=== PATIENT | female | born 1980 | race Two or more races ===

== ENCOUNTER 2019-04-07 10:17 | Emergency (ER) | payer OTHER ==
[2019-04-07 10:33] VITALS: BP 117/79; PULSE 106; TEMP 98.1; BMI 29.5
[2019-04-07] MEDS ORDERED: KETOROLAC TROMETHAMINE 60 MG/2 ML VIAL IM ONE (11:35)
--- NOTE | 2019-04-07 11:41 | PDOC ---
History of Present Illness - General Chief Complaint: Pain, Acute Stated Complaint: RT FOOT PAIN Time Seen by Provider: 04/07/19 10:53 History Source: Patient - History of Present Illness Occurred: reports: other Severity: Yes: severe Lower Extremity Pain Location: right: foot Past History - Past Medical History Allergies/Adverse Reactions: Allergies Allergy/AdvReac Type Severity Reaction Status Date / Time No Known Allergies Allergy Verified 04/07/19 10:28 Home Medications: Ambulatory Orders Ibuprofen [Motrin] 800 mg PO TID #30 tablet 01/22/12 No Home Medications 01/22/12 levoFLOXacin [Levaquin] 750 mg PO DAILY #5 tablet 01/22/12 Ibuprofen [Motrin -] 800 mg PO Q6H #30 tablet 04/07/19 - Reproductive History Ectopic : Yes - Suicide/Smoking/Psychosocial Hx Smoking Status: Yes Smoking History: Current some day smoker Number of Cigarettes Smoked Daily: 5 Information on smoking cessation initiated: No Hx Alcohol Use: No Drug/Substance Use Hx: No Review of Systems - Review of Systems Constitutional: No: Chills, Fever Musculoskeletal: Yes: Joint Pain. No: Joint Swelling Integumentary: No: Rash *Physical Exam - Vital Signs Last Vital Signs Temp Pulse Resp BP Pulse Ox 98.1 F 106 H 18 117/79 99 04/07/19 10:23 04/07/19 10:23 04/07/19 10:23 04/07/19 10:23 04/07/19 10:23 - Physical Exam General Appearance: Yes: Appropriately Dressed, Moderate Distress HEENT: positive: Normal Voice Neck: positive: Supple Respiratory/Chest: negative: Respiratory Distress Extremity: positive: Other (ttp to medial R foot, no swelling or erythema, no ttp to plantar aspect or heel) Integumentary: positive: Dry, Warm Neurologic: positive: Fully Oriented, Alert, Normal Mood/Affect Medical Decision Making - Medical Decision Making 04/07/19 11:36 38 yo F, here w/ atraumatic R foot pain. Pt states for several months, she has had on and off pain mostly to medial R foot, radiating into ankle, hurts to bear weight, improves w/ motrin. Seen by her PMD and told possible MSK. Here today because pain worsen 2 days ago, limping in ED. pt works for [employer] and mostly sits at work per pt See exam Acute on chronic R foot pin Etiology unclear No plantar/heel ttp to suspect faciitis or spur No trauma Pain meds in ED Crutches given -dc w/ pain control and ortho f/u *DC/Admit/Observation/Transfer Diagnosis at time of Disposition: Foot pain, right - Discharge Dispostion Disposition: HOME Condition at time of disposition: Good - Prescriptions Prescriptions: Ibuprofen [Motrin -] 800 mg PO Q6H #30 tablet - Referrals Referrals: Quang Pham MD [Primary Care Provider] - Markie Olvera MD [Staff Physician] - - Patient Instructions Printed Discharge Instructions: DI for Foot Pain Additional Instructions: The cause of your foot pain is unclear and you will need further evaluation by an orthopedist Take motrin for pain as prescribed - Post Discharge Activity Forms/Work/School Notes: Back to Work
[2019-04-07] MEDS ORDERED: KETOROLAC TROMETHAMINE 60 MG/2 ML VIAL ONE (11:50)
== END 2019-04-07 12:32 | disposition home or self-care (01) ==
LOC: JER 10:17
PROC: 3E0233Z Introduction of Anti-inflammatory into Muscle, Percutaneous Approach (ICD-10-PCS; principal; 2019-04-07)
DX: M79.671 Pain in right foot (principal)
CPT/HCPCS: 99282-25

== ENCOUNTER 2022-09-30 18:28 | Emergency (ER) | payer SELFPAY ==
[2022-09-30 18:33] VITALS: BP 117/73; PULSE 77; RESP 18; TEMP 99; BMI 31.4
[2022-09-30] MEDS ORDERED: ACETAMINOPHEN 1000 MG/100 ML BAG IVPB ONE (19:19)
[2022-09-30] MEDS ORDERED: SODIUM CHLORIDE 0.9% 500 ML INFUS.BAG IV ONE (19:19)
[2022-09-30] MEDS ORDERED: ACETAMINOPHEN INJECTION 100 ML IVPB ONE (19:22)
[2022-09-30 19:55] LABS: BASO % 0.6 % (0-2.0); EOS % 2.3 % (0-4.5); HEMATOCRIT 36.3 % (32.4-45.2); HEMOGLOBIN 11.6 GM/dL (10.7-15.3); LYMPH % 14.4 % (8-40); MCH 22.4 pg (25.7-33.7); MEAN CELL VOLUME 69.9 fl (80-96); MEAN PLT VOLUME 7.1 fl (7.5-11.1); MONO % 15.5 % (3.8-10.2); NEUT % 67.2 % (42.8-82.8); PLATELET COUNT 144 10^3/uL (134-434); RDW 13.2 % (11.6-15.6); WHITE BLOOD COUNT 2.9 K/mm3 (4.0-10.0)
[2022-09-30 19:59] LABS: EPI CELLS 29 /uL (0-25.1); HCG,QUALITATIVE URINE Negative; HYALINE CASTS 1 /uL (0-3.1); URINE APPEARANCE CLOUDY; URINE BACTERIA 514 /uL (0-1359); URINE BILIRUBIN NEGATIVE (NEGATIVE); URINE COLOR YELLOW; URINE GLUCOSE (UA) NEGATIVE (NEGATIVE); URINE KETONE NEGATIVE (NEGATIVE); URINE LEUK ESTERASE 2+ (NEGATIVE); URINE NITRITE NEGATIVE (NEGATIVE); URINE PROTEIN NEGATIVE (NEGATIVE); URINE RBC 6 /uL (0-23.9); URINE UROBILINOGEN 0.2 mg/dL (0.2-1.0); URINE WBC 161 /uL (0-25.8)
[2022-09-30 20:23] LABS: ALBUMIN 3.6 g/dl (3.4-5.0); CALCIUM 8.3 mg/dL (8.5-10.1)
[2022-09-30 20:26] LABS: CREATININE 0.8 mg/dL (0.55-1.3)
[2022-09-30 20:28] LABS: BILIRUBIN,TOTAL 0.6 mg/dL (0.2-1)
[2022-09-30] MEDS ORDERED: CEFTRIAXONE 1 GM in DEXTROSE 5%-WATER - 100 ML IVPB ONE (20:39)
[2022-09-30] MEDS ORDERED: CEFTRIAXONE 1 GM/50 ML BAG ONE (20:44)
[2022-09-30 21:33] LABS: THROAT:GRP A STREP NOT DETECTED (NOTDETECTED)
== END 2022-09-30 22:12 | disposition home or self-care (01) ==
LOC: JERFT 18:28
PROC: 3E0333Z Introduction of Anti-inflammatory into Peripheral Vein, Percutaneous Approach (ICD-10-PCS; principal; 2022-09-30)
PROC: 3E03329 Introduction of Other Anti-infective into Peripheral Vein, Percutaneous Approach (ICD-10-PCS; 2022-09-30)
DX: N39.0 Urinary tract infection, site not specified (principal)
CPT/HCPCS: 0241U-QW; 36415; 80053; 81003; 84703; 85025; 87086; 87651; 99284-25

== ENCOUNTER 2023-08-08 09:30 | Emergency (ER) | payer OTHER ==
[2023-08-08 09:45] VITALS: BMI 32.1
[2023-08-08] MEDS ORDERED: SODIUM CHLORIDE 0.9% 500 ML INFUS.BAG IV ONE (10:50)
[2023-08-08] MEDS ORDERED: ACETAMINOPHEN 1000 MG/100 ML BAG IVPB ONE (10:50)
[2023-08-08] MEDS ORDERED: ACETAMINOPHEN INJECTION 100 ML IVPB ONE (10:53)
[2023-08-08 11:01] LABS: BASO % 0.8 % (0-2.0); EOS % 4.6 % (0-4.5); HEMATOCRIT 39.5 % (32.4-45.2); HEMOGLOBIN 12.6 GM/dL (10.7-15.3); LYMPH % 39.8 % (8-40); MCH 22.9 pg (25.7-33.7); MCHC 31.8 g/dl (32.0-36.0); MEAN PLT VOLUME 6.9 fl (7.5-11.1); MONO % 7.8 % (3.8-10.2); PLATELET COUNT 243 10^3/uL (134-434); RBC 5.49 M/mm3 (3.60-5.2); WHITE BLOOD COUNT 5.7 K/mm3 (4.0-10.0)
[2023-08-08 11:14] LABS: POTASSIUM 4.1 mmol/L (3.5-5.1)
[2023-08-08 11:16] LABS: CALCIUM 9.1 mg/dL (8.5-10.1)
[2023-08-08 11:17] LABS: ALBUMIN 3.6 g/dl (3.4-5.0); BLOOD UREA NITROGEN 7.8 mg/dL (7-18)
[2023-08-08 11:20] LABS: CREATININE 0.8 mg/dL (0.55-1.3)
[2023-08-08 11:21] LABS: TOT PROT 7.4 g/dl (6.4-8.2)
[2023-08-08 12:52] VITALS: BP 128/81; PULSE 80; RESP 18; TEMP 98.4
== END 2023-08-08 13:16 | disposition home or self-care (01) ==
LOC: JER 09:30
PROC: 3E033NZ Introduction of Analgesics, Hypnotics, Sedatives into Peripheral Vein, Percutaneous Approach (ICD-10-PCS; principal; 2023-08-08)
DX: R07.89 Other chest pain (principal); J98.4 Other disorders of lung; U07.1 COVID-19; F17.200 Nicotine dependence, unspecified, uncomplicated
CPT/HCPCS: 0241U-QW; 36415; 71275-TC; 80053; 84484; 84703; 85025; 85379; 93005; 93010; 99285-25; Q9967

== ENCOUNTER 2023-10-03 23:25 | Emergency (ER) | payer OTHER ==
[2023-10-03 23:30] VITALS: TEMP 99.1; BMI 29.8
[2023-10-04] MEDS ORDERED: IBUPROFEN 600 MG TABLET (FP) PO ONE (01:19)
[2023-10-04] MEDS: IBUPROFEN 600 MG TABLET (FP) PO ONE (01:20)
[2023-10-04 01:45] VITALS: BP 139/75; PULSE 98; RESP 19
[2023-10-04] MEDS ORDERED: AMOX TR/POT CLAV 875MG/125MG TABLETS (FP) ONE (01:45)
[2023-10-04] MEDS: AMOX TR/POT CLAV 875MG/125MG TABLETS (FP) PO ONE (01:46)
== END 2023-10-04 02:01 | disposition home or self-care (01) ==
LOC: JER 23:25
DX: R07.89 Other chest pain (principal); R09.81 Nasal congestion; R05.9 Cough, unspecified; J01.90 Acute sinusitis, unspecified; Z20.822 Contact with and (suspected) exposure to COVID-19
CPT/HCPCS: 0241U-QW; 71046-TC-FY; 93005; 93010; 99285-25

== ENCOUNTER 2024-02-28 10:07 | Emergency (ER) | payer OTHER ==
[2024-02-28 10:31] VITALS: BP 121/85; PULSE 96; RESP 20; TEMP 97.6; BMI 31.4
[2024-02-28] MEDS ORDERED: KETOROLAC TROMETHAMINE 30 MG/1 ML VIAL ONE (11:56)
[2024-02-28] MEDS: KETOROLAC TROMETHAMINE 30 MG/1 ML VIAL IM ONE (12:02)
== END 2024-02-28 13:38 | disposition home or self-care (01) ==
LOC: JERFT 10:07
PROC: 3E0133Z Introduction of Anti-inflammatory into Subcutaneous Tissue, Percutaneous Approach (ICD-10-PCS; principal; 2024-02-28)
DX: M25.462 Effusion, left knee (principal); R20.2 Paresthesia of skin
CPT/HCPCS: 73562-TC-LT-FY; 73630-TC-LT; 93971-TC; 99284-25